=== PATIENT | female | born 1945 | race American Indian/Alaskan Native ===

== ENCOUNTER 2019-09-22 04:28 | Emergency (ER) | payer MEDICARE ==
[2019-09-22 05:33] LABS: Basophils % (Auto) 0.7 % (0.0-1.8); Eosinophils # (Auto) 0.1 K/mm3 (0.0-0.4); Eosinophils % (Auto) 1.6 % (0.0-4.3); Hematocrit 34.8 % (30.3-42.9); Hemoglobin 11.2 gm/dl (10.1-14.3); Lymphocytes # (Auto) 0.7 K/mm3 (1.2-5.4); Lymphocytes % (Auto) 9.7 % (13.4-35.0); Mean Corpuscular HGB Conc 32 % (30-34); Mean Corpuscular Volume 89 fl (79-97); Monocytes # (Auto) 0.6 K/mm3 (0.0-0.8); Monocytes % (Auto) 8.3 % (0.0-7.3); Platelet Count 270 K/mm3 (140-440); Red Blood Count 3.92 M/mm3 (3.65-5.03)
--- NOTE | 2019-09-22 06:26 | Emergency Department Report ---
ED General Adult HPI - General Chief complaint: Weakness Stated complaint: GENERAL WEAKNESS Time Seen by Provider: 09/22/19 06:09 Source: patient, family, EMS (EMS records not available at time of chart dictation.), RN notes reviewed, old records reviewed Mode of arrival: Stretcher Limitations: Physical Limitation - History of Present Illness Initial comments: During history and physical examination, I am parts chaser and escorted by nurse SAMIR MUELLER The patient is a 74-year-old female. She is not known to myself previously. She typically follows with the [facility]. Her past medical history includes hypertension, obesity, elephantiasis. The patient has a chronic wound on her right lower extremity which her family reportedly is taking care of. The patient presents to the ER with a complaint of leg weakness and difficulty walking. The patient is typically ambulatory with a cane and/or walker. She reports that yesterday, at around 1:00 PM, she was not able to get herself up and had difficulty slightly herself up with her right lower extremity, or so she thinks. Her history is erratic, because during the history and physical, she then ingested her story/history and indicated that she felt like her left leg was weaker, possibly starting at 4:00 PM. The patient denies physical pain, with the exception of chronic right lower ext remity pain over her wound. There is no complaint of headache, neck pain, chest pain, abdominal pain. She has chronic shortness of breath. The patient denies bladder or bowel retention, and incontinence. She denies saddle anesthesia. Her extremity weakness is constant. -: hour(s) Location: left, right, lower extremity Consistency: constant Improves with: rest Worsens with: movement - Related Data Allergies Allergy/AdvReac Type Severity Reaction Status Date / Time No Known Allergies Allergy Verified 09/22/19 12:47 ED Review of Systems ROS: Stated complaint: GENERAL WEAKNESS Other details as noted in HPI Constitutional: malaise Eyes: denies: eye discharge ENT: denies: congestion Respiratory: shortness of breath Cardiovascular: edema Gastrointestinal: denies: abdominal pain Genitourinary: denies: dysuria Musculoskeletal: arthralgia, myalgia Skin: lesions Neurological: weakness. denies: headache, numbness Hematological/Lymphatic: denies: easy bleeding ED Past Medical Hx - Past Medical History Hx Hypertension: Yes Hx Renal Disease: Yes - Social History Smoking Status: Never Smoker Substance Use Type: None ED Physical Exam - General Limitations: Physical Limitation General appearance: alert, in no apparent distress - Head Head exam: Present: atraumatic, normocephalic - Eye Eye exam: Present: normal appearance, EOMI. Absent: nystagmus - ENT ENT exam: Present: normal exam, normal orophraynx, mucous membranes moist, normal external ear exam - Neck Neck exam: Present: normal inspection, full ROM. Absent: tenderness, meningismus - Respiratory Respiratory exam: Present: decreased breath sounds. Absent: respiratory distress, wheezes, rales, stridor - Cardiovascular Cardiovascular Exam: Present: normal rhythm, tachycardia, normal heart sounds. Absent: systolic murmur, diastolic murmur, rubs, gallop - GI/Abdominal GI/Abdominal exam: Present: soft. Absent: distended, tenderness, guarding, rebound, rigid, pulsatile mass - Rectal Rectal exam: Present: normal inspection, normal rectal tone, other (chaperoned by nurse SAMIR MUELLER). Absent: decreased rectal tone, heme (-) stool, heme (+) stool, black stool - Extremities Exam Extremities exam: Present: pedal edema, other (2+ pulses noted in the bilateral upper and lower extremities. The pelvis is stable. There is no long bony tenderness. The muscular compartments are soft. There is no redness, pus, streaking or erythema.). Absent: normal inspection (chronic-appearing wounds noted on right lower extremity. Elephantiasis is noted. Venous stasis is noted.), calf tenderness - Back Exam Back exam: Present: normal inspection. Absent: tenderness, CVA tenderness (R), CVA tenderness (L), paraspinal tenderness, vertebral tenderness - Neurological Exam Neurological exam: Present: alert, other (there is no facial droop. The tongue is midline. Extraocular movements are intact bilaterally. Sensation is intact to light touch in the bilateral V1, V2, V3 distribution bilaterally.visual acuity intact to finger counting, color perception, reading at a close distance 5/5 strength bilateral upper extremities. Sensation is intact to light touch and pinch in the bilateral upper and lower extremities. Plantar flexion, dorsiflexion intact in the bilateral lower extremities. When the bilateral hips are isolated, and the bilateral knees are held in flexion, 5/5 strength in the bilateral lower extremities.) - Psychiatric Psychiatric exam: Present: anxious - Skin Skin exam: Present: warm ED Course Vital Signs 09/22/19 09/22/19 09/22/19 04:45 05:29 05:30 Temperature 97.5 F L Pulse Rate 108 H 78 81 Respiratory 28 H 19 22 Rate Blood Pressure 156/74 Blood Pressure 156/65 [Left] O2 Sat by Pulse 91 91 89 Oximetry 09/22/19 09/22/19 09/22/19 05:45 05:48 06:00 Temperature Pulse Rate 66 74 Respiratory 25 H 18 17 Rate Blood Pressure 171/68 166/83 Blood Pressure [Left] O2 Sat by Pulse 96 97 96 Oximetry 09/22/19 09/22/19 09/22/19 06:15 08:44 13:23 Temperature Pulse Rate 82 80 Respiratory 16 16 Rate Blood Pressure 152/71 Blood Pressure 158/84 143/59 [Left] O2 Sat by Pulse 98 100 95 Oximetry - Reevaluation(s) Reevaluation #1: 09/22/19 07:40 Differential diagnosis, including but not limited to: Pneumonia, urinary tract infection, debility, spinal cord lesion, subacute stroke, congestive heart failure, cardiorenal syndrome Assessment and plan: 74-year-old female with chronic weakness and debility, presenting with worsens lower extremity subjective weakness and functional status. The patient is a poor historian, and has difficulty providing her exact last known well time. However, she presents more than 4.5 hours after symptom onset, it is not a TPA candidate. She is seen in consultation with stroke neurology, Dr. Castellanos, and we agreed to obtain emergent imaging to exclude large vessel occlusion, and lumbar spinal cord compression, based off of the history and physical. Patient indicates no contraindications to MRI, and has evidence of renal failure/renal insufficiency, manifest by decreased GFR, and elevated creatinine. Emergent MRI of the brain, MR angiogram head and neck ordered, and lumbar spine ordered. Lasix is ordered, given hypoxia, and chest x-ray findings as well as physical exam findings. Discussed with [facility] physician, Dr. Morrison, who is agreeable to this plan of care, she requests call back once these diagnostics have resulted. Reevaluation #2: 09/22/19 10:40 MRI brain, angiogram head tentatively interpreted as negative for acute findings by Dr. Madden. MR angiogram neck pending interpretation at this time. Patient initially refused a lumbar spine MRI. I went back and had an extensive d iscussion with the patient, and we talked about the need for emergency acquisition of MRI. The patient is agreeable to MRI of the lumbar spine at this time. Discussion had with [facility] physician, Prince enciso updated Reevaluation #3: 09/22/19 11:58 mr head, mra head neck negative mri l spine shows 3mm-10mm anterolisthesis of l3/l4 with encroachment onto the cauda equina repeat phone call sent to [facility] Reevaluation #4: 09/22/19 12:34 Dr Flores of [facility] to follow in consultation [facility] to reach out to internal medicine to discuss transfer 09/22/19 13:37 Discussed with [facility] critical care doctor, Dr. Dorothy Lawton, who agrees the patient does not require intensive care unit triage. MRI full report is reviewed and appreciated. Please note that findings of discitis will not specifically discussed with me verbally by the radiologist. The patient is not having any back pain or back tenderness. However, she will be covered empirically with vancomycin and ceftriaxone. 09/22/19 14:26 Reevaluation #5: 09/22/19 13:52 Dr Magdaleno to admit to IMS at [facility] Patient has potentially emergent condition at this time, demonstrated by history, physical exam and objective MRI findings, such as discitis, anterolisthesis, and encroachment on the cauda equina, which cannot be definitively managed at this hospital as we do not have neurosurgical and spine capability available for consultation, evaluation and intervention. Patient's is hemodynamically suitable for transfer at this time. 09/22/19 13:54 ED Medical Decision Making - Lab Data Result diagrams: 09/22/19 05:21 09/22/19 05:21 Vital Signs 09/22/19 09/22/19 09/22/19 04:45 05:29 05:30 Temperature 97.5 F L Pulse Rate 108 H 78 81 Respiratory 28 H 19 22 Rate Blood Pressure 156/74 Blood Pressure 156/65 [Left] O2 Sat by Pulse 91 91 89 Oximetry 09/22/19 09/22/19 09/22/19 05:45 05:48 06:00 Temperature Pulse Rate 66 74 Respiratory 25 H 18 17 Rate Blood Pressure 171/68 166/83 Blood Pressure [Left] O2 Sat by Pulse 96 97 96 Oximetry 09/22/19 06:15 Temperature Pulse Rate Respiratory Rate Blood Pressure 152/71 Blood Pressure [Left] O2 Sat by Pulse 98 Oximetry Lab Results 09/22/19 09/22/19 09/22/19 Range/Units 05:21 05:21 05:21 WBC 6.9 (4.5-11.0) K/mm3 RBC 3.92 (3.65-5.03) M/mm3 Hgb 11.2 (10.1-14.3) gm/dl Hct 34.8 (30.3-42.9) % MCV 89 (79-97) fl MCH 29 (28-32) pg MCHC 32 (30-34) % RDW 15.0 (13.2-15.2) % Plt Count 270 (140-440) K/mm3 Lymph % (Auto) 9.7 L (13.4-35.0) % [place] % (Auto) 8.3 H (0.0-7.3) % Eos % (Auto) 1.6 (0.0-4.3) % Baso % (Auto) 0.7 (0.0-1.8) % Lymph # 0.7 L (1.2-5.4) K/mm3 [place] # 0.6 (0.0-0.8) K/mm3 Eos # 0.1 (0.0-0.4) K/mm3 Baso # 0.0 (0.0-0.1) K/mm3 Seg Neutrophils % 79.7 H (40.0-70.0) % Seg Neutrophils # 5.5 (1.8-7.7) K/mm3 PT (12.2-14.9) Sec. INR (0.87-1.13) APTT (24.2-36.6) Sec. Sodium 144 (137-145) mmol/L Potassium 4.3 (3.6-5.0) mmol/L Chloride 103.9 (98-107) mmol/L Carbon Dioxide 25 (22-30) mmol/L Anion Gap 19 mmol/L BUN 20 H (7-17) mg/dL Creatinine 1.6 H (0.7-1.2) mg/dL Estimated GFR 32 ml/min BUN/Creatinine Ratio 13 % Glucose 105 H (65-100) mg/dL Calcium 10.0 (8.4-10.2) mg/dL Total Bilirubin (0.1-1.2) mg/dL Direct Bilirubin (0-0.2) mg/dL Indirect Bilirubin mg/dL AST (5-40) units/L ALT (7-56) units/L Alkaline Phosphatase (35-129) units/L Total Creatine Kinase 210 H (30-135) units/L Troponin T < 0.010 (0.00-0.029) ng/mL Total Protein (6.3-8.2) g/dL Albumin (3.9-5) g/dL Albumin/Globulin Ratio % Salicylates (2.8-20.0) mg/dL Acetaminophen (10.0-30.0) ug/mL 09/22/19 09/22/19 09/22/19 Range/Units 06:48 06:48 06:48 WBC (4.5-11.0) K/mm3 RBC (3.65-5.03) M/mm3 Hgb (10.1-14.3) gm/dl Hct (30.3-42.9) % MCV (79-97) fl MCH (28-32) pg MCHC (30-34) % RDW (13.2-15.2) % Plt Count (140-440) K/mm3 Lymph % (Auto) (13.4-35.0) % [place] % (Auto) (0.0-7.3) % Eos % (Auto) (0.0-4.3) % Baso % (Auto) (0.0-1.8) % Lymph # (1.2-5.4) K/mm3 [place] # (0.0-0.8) K/mm3 Eos # (0.0-0.4) K/mm3 Baso # (0.0-0.1) K/mm3 Seg Neutrophils % (40.0-70.0) % Seg Neutrophils # (1.8-7.7) K/mm3 PT 14.3 (12.2-14.9) Sec. INR 1.10 (0.87-1.13) APTT 32.2 (24.2-36.6) Sec. Sodium (137-145) mmol/L Potassium (3.6-5.0) mmol/L Chloride (98-107) mmol/L Carbon Dioxide (22-30) mmol/L Anion Gap mmol/L BUN (7-17) mg/dL Creatinine (0.7-1.2) mg/dL Estimated GFR ml/min BUN/Creatinine Ratio % Glucose (65-100) mg/dL Calcium (8.4-10.2) mg/dL Total Bilirubin 0.70 (0.1-1.2) mg/dL Direct Bilirubin 0.2 (0-0.2) mg/dL Indirect Bilirubin 0.5 mg/dL AST 21 (5-40) units/L ALT 12 (7-56) units/L Alkaline Phosphatase 75 (35-129) units/L Total Creatine Kinase (30-135) units/L Troponin T (0.00-0.029) ng/mL Total Protein 7.3 (6.3-8.2) g/dL Albumin 3.2 L (3.9-5) g/dL Albumin/Globulin Ratio 0.8 % Salicylates < 0.3 L (2.8-20.0) mg/dL Acetaminophen (10.0-30.0) ug/mL 09/22/19 Range/Units 06:48 WBC (4.5-11.0) K/mm3 RBC (3.65-5.03) M/mm3 Hgb (10.1-14.3) gm/dl Hct (30.3-42.9) % MCV (79-97) fl MCH (28-32) pg MCHC (30-34) % RDW (13.2-15.2) % Plt Count (140-440) K/mm3 Lymph % (Auto) (13.4-35.0) % [place] % (Auto) (0.0-7.3) % Eos % (Auto) (0.0-4.3) % Baso % (Auto) (0.0-1.8) % Lymph # (1.2-5.4) K/mm3 [place] # (0.0-0.8) K/mm3 Eos # (0.0-0.4) K/mm3 Baso # (0.0-0.1) K/mm3 Seg Neutrophils % (40.0-70.0) % Seg Neutrophils # (1.8-7.7) K/mm3 PT (12.2-14.9) Sec. INR (0.87-1.13) APTT (24.2-36.6) Sec. Sodium (137-145) mmol/L Potassium (3.6-5.0) mmol/L Chloride (98-107) mmol/L Carbon Dioxide (22-30) mmol/L Anion Gap mmol/L BUN (7-17) mg/dL Creatinine (0.7-1.2) mg/dL Estimated GFR ml/min BUN/Creatinine Ratio % Glucose (65-100) mg/dL Calcium (8.4-10.2) mg/dL Total Bilirubin (0.1-1.2) mg/dL Direct Bilirubin (0-0.2) mg/dL Indirect Bilirubin mg/dL AST (5-40) units/L ALT (7-56) units/L Alkaline Phosphatase (35-129) units/L Total Creatine Kinase (30-135) units/L Troponin T (0.00-0.029) ng/mL Total Protein (6.3-8.2) g/dL Albumin (3.9-5) g/dL Albumin/Globulin Ratio % Salicylates (2.8-20.0) mg/dL Acetaminophen < 5.0 L (10.0-30.0) ug/mL - EKG Data 09/22/19 07:40 There is no prior EKG available for comparison. The EKG today shows a sinus rhythm, 78 bpm, left axis deviation, left anterior fascicular block, PVC, motion artifact, no endorsement of chest pain, the EKG is abnormal, it is not co nsistent with ST elevation myocardial infarction. - Radiology Data Radiology results: report reviewed, image reviewed Print Report Referring Physician: BRUCE SILVEIRA Patient Name: DIPIKA JONAS Date of : 1945 Sex: Female Report Date: 2019-09-22 Report Status: Finalized Findings [facility] [address] [place] [address] Cat Scan Report Signed Patient: DIPIKA JONAS MR#: [id number] : 1945 Acct:[id number] Age/Sex: 74 / F ADM Date: 09/22/19 Loc: ED Attending Dr: Ordering Physician: BRUCE SILVEIRA MD Date of Service: 09/22/19 Procedure(s): CT head/brain wo con Accession Number(s): [id number] cc: BRUCE SILVEIRA MD Examination: CT of the head without contrast Clinical information: Stroke symptoms. Right leg weakness. Comparison: None Technical: Multiple axial CT images of the head were obtained without intravenous contrast. Sagittal and coronal reformats were obtained. All CTs at this facility utilize dose reduction techniques including automated exposure control, iterative reconstruction and weight based dosing when appropriate to reduce patient radiation dose to as low as reasonable achievable. Findings: There is no CT evidence of acute intracranial hemorrhage or large territorial infarct. Subtle confluent regions of hypodensity are seen within the periventricular white matter. The ventricular system is normal in size. No extra-axial fluid collections are visualized. Evaluation of bony structures demonstrates no evidence of acute bony abnormality. There is complete mucosal opacification of the left maxillary sinus. Impression: 1. No definitive CT evidence of acute intracranial process. 2. Changes associated with chronic small vessel ischemic disease. If there is persistent clinical concern for stroke then MRI of the brain is recommended. This study was designated as a stroke protocol CT and findings were personally called to Dr Silveira in the Emergency Department at 5:58 AM. Signer Name: Carmel Almendarez MD Signed: 09/22/2019 6:58 AM Workstation Name: [id number] Transcribed By: EB Dictated By: Carmel Almendarez MD Electronically Authenticated By: Carmel Almendarez MD Signed Date/Time: 09/22/19657 DD/ 2 TD/TT: Print Report Referring Physician: BRUCE SILVEIRA Patient Name: DIPIKA JONAS Date of : 1945 Sex: Female Report Date: 2019-09-22 Report Status: Finalized Findings [facility] [address] [place] [address] XRay Report Signed Patient: DIPIKA JONAS MR#: [id number] : 1945 Acct:[id number] Age/Sex: 74 / F ADM Date: 09/22/19 Loc: ED Attending Dr: Ordering Physician: BRUCE SILVEIRA MD Date of Service: 09/22/19 Procedure(s): XR chest 1V ap Accession Number(s): [id number] cc: BRUCE SILVEIRA MD Fluoro Time In Minutes: CHEST 1 VIEW, 09/22/2019 6:56 AM CLINICAL INFORMATION/INDICATION: Weakness COMPARISON: None FINDINGS: SUPPORT DEVICES: None. HEART: The cardiac silhouette is enlarged. LUNGS/PLEURA: Perihilar interstitial disease is noted bilaterally. ADDITIONAL FINDINGS: No additional acute findings. IMPRESSION: 1. Enlargement of the cardiac silhouette with perihilar interstitial disease suggestive of pulmonary edema. Signer Name: Carmel Almendarez MD Signed: 09/22/2019 7:25 AM Workstation Name: [email or web address] Transcribed By: EB Dictated By: Carmel Almendarez MD Electronically Authenticated By: Carmel Almendarez MD Signed Date/Time: 09/22/19724 DD/DT: 09/22 Print Report Referring Physician: BRUCE SILVEIRA Patient Name: DIPIKA JONAS Date of : 1945 Sex: Female Report Date: 2019-09-22 Report Status: [place] [address] Magnetic Resonance Report Signed Patient: DIPIKA JONAS MR#: [id number] : 1945 Acct:[id number] Age/Sex: 74 / F ADM Date: 09/22/19 Loc: ED Attending Dr: Ordering Physician: BRUCE SILVEIRA MD Date of Service: 09/22/19 Procedure(s): MR lumbar spine wo con Accession Number(s): [id number] cc: BRUCE SILVEIRA MD MR lumbar spine wo con INDICATION / CLINICAL INFORMATION: 74 years Female; b/l lower ex weakness vs cva. TECHNIQUE: Multisequence, multiplanar images of the lumbar spine were obtained. COMPARISON: None available. FINDINGS: ALIGNMENT: There is grade 1 anterolisthesis of L3 with respect to L4 which appears to be on a degenerative basis. Approximately 8 mm of anterolisthesis is present. There is also scoliosis of the lumbar spine and mild excessive lordosis. VERTEBRAE:Grossly normal marrow signal and vertebral body height for age. However, there is evidence of endplate edema, as well as intradiscal edema at T11-12. Mild edema seen anterior the disc space at this level, as well. Schmorl's node is seen along superior endplate of T12. Findings may be on a degenerative basis, but the possibility of early discitis cannot entirely be excluded. Please clinically correlate. Modic type II changes are seen at L5-S1. Scattered hemangiomata seen at multiple levels. These findings are of no clinical significance. VISUALIZED SPINAL CORD: No significant abnormality. INTERVERTEBRAL DISCS: Multilevel disc desiccation noted. Disc space narrowing seen at L3-4. [id number] ANALYSIS: T11-12: As above. Mild disc bulge and mild facet and moderate ligamentum flavum hypertrophy noted. Mild canal narrowing seen. L1-2: No significant abnormality. L2-3: Mild disc bulge. [id number] facet and ligamentum flavum hypertrophy. Mild canal narrowing seen. Mild to moderate foraminal narrowing on the right without significant sequela. L3-4: As above. There is moderate disc bulge and moderate facet/ligamentum flavum hypertrophy. Findings result in high-grade canal narrowing at this level. Descending nerve roots are most likely affected. Moderate foraminal narrowing is seen bilaterally with encroachment upon L3 nerves. No impingement seen. L4-5: Mild disc bulge and small posterocentral disc protrusion. Mild to moderate facet hypertrophy. Mild foraminal narrowing bilaterally without significant sequela. L5-S1: Mild facet hypertrophy. No significant sequela. PARASPINAL SOFT TISSUES: There is edema in and around the L4-5 facet joint on the left, presumably reactive from arthropathy. Mild findings seen on the right at this level as well. ADDITIONAL FINDINGS: None. IMPRESSION: 1. Degenerative changes of the lumbar spine as described above. Most marked findings appear to be at L3-4. 2. Edematous changes seen in the disc and along the endplates at T11-12, as described above. Follow-up as clinically warranted. Signer Name: Alphonse Wright MD, III Signed: 09/22/2019 1:18 PM Workstation Name: [id number] Transcribed By: HR Dictated By: Alphonse Wright MD Electronically Authenticated By: Alphonse Wright MD Signed Date/Time: 09/22/19 1318 DD/ 1302 TD/TT: Critical Care Time: Yes Critical care time in (mins) excluding proc time.: 60 Critical care attestation.: If time is entered above; I have spent that time in minutes in the direct care of this critically ill patient, excluding procedure time. ED Disposition Clinical Impression: Leg weakness, Debility, Cardiorenal syndrome with renal failure, Chronic wound of extremity Disposition: DC/TX-02 SHRT-TRM GEN HOSP IP Is pt being admited?: No Does the pt Need Aspirin: No Condition: Stable Referrals: PRIMARY CARE, [Referring] - 3-5 Days
--- NOTE | 2019-09-22 06:59 | Emergency Department Report ---
ED Neuro Deficit HPI - General Chief Complaint: Weakness Stated Complaint: GENERAL WEAKNESS Time Seen by Provider: 09/22/19 06:09 Source: EMS Mode of arrival: Stretcher Limitations: Physical Limitation - History of Present Illness Initial Comments: [facility] Date of Service: 09/22/2019 06:28:12 Impression: RO Acute Ischemic Stroke = Probable History of Lumbar Stenosis. Comments: The paient has bilateral lower extremity weakness r>>l leg. She is able to move the right leg more than the left leg. She does have some lower back pain. No loss of incontincence. The patient is weak in the lower extremities. She has a lumbar stenosis in the spine. #1. Per Dr. Akins - MRI MRA head/neck will call [facility] back when this is completed. #2. MRI lumbar spine also. Mechanism of Stroke: Possible Thromboembolic Metrics: Last Known Well: Unknown [facility] Notification Time: 09/22/2019 06:27:29 Arrival Time: 09/22/2019 06:28:12 Stamp Time: 09/22/2019 06:28:12 Time First Login Attempt: 09/22/2019 06:35:01 Video Start Time: 09/22/2019 06:35:01 Symptoms: leg weakness, last known well is unkown NIHSS Start Assessment Time: 09/22/2019 06:36:31 Patient is not a candidate for tPA. Patient was not deemed candidate for tPA thrombolytics because of Last Well Know n Above 4.5 Hours. Video End Time: 09/22/2019 06:54:10 CT head showed no acute hemorrhage or acute core infarct. Advanced imaging CTA head and neck obtained. Radiologist was called back for review of advanced imaging on 09/22/2019 06:51:59 ER Physician notified of the decision on thrombolytics management on 09/22/2019 06:51:58 Our recommendations are outlined below. Recommendations: Activate Stroke Protocol Admission/Order Set Stroke/Telemetry Floor Neuro Checks Bedside Swallow Eval DVT Prophylaxis IV Fluids, Normal Saline Head of Bed Below 30 Degrees Euglycemia and Avoid Hyperthermia (PRN Acetaminophen) Hold Antithrombotics for Now Recommended Scan: MRI Head with and Without Contrast Lipid Panel to Be Obtained, if Not Done in the Last Three Months Therapies: Physical Therapy, Occupational Therapy, Speech Therapy Assessment When Applicable Dysphaghia Screen: Swallow Evaluation, Bedside NPO Until Swallow Evaluation DVT prophylaxis: SCDs, Pneumatic Compression Disposition: Follow up with Teleneurology Follow up Sign Out: Discussed with Emergency Department Provider History of Present Illness: Patient is a 74 year old Female. Patient was brought by EMS for symptoms of leg weakness, last known well is unkown The patient walks with a cane and walker, and she had right leg weakness, and left leg weakness at 4:[address] head showed no acute hemorrhage or acute core infarct. Last seen normal was beyond 4.5 hours of presentation. There is no history of hemorrhagic complications or intracranial hemorrhage. There is no history of Recent Anticoagulants. There is no history of recent major surgery. There is no history of recent stroke. Examination: BP(177/91), Pulse(97), Blood Glucose(105) 1A: Level of Consciousness - Alert; keenly responsive + 0 1B: Ask Month and Age - Both Questions Right + 0 1C: Blink Eyes & Squeeze Hands - Performs Both Tasks + 0 2: Test Horizontal Extraocular Movements - Normal + 0 3: Test Visual Amin - No Visual Loss + 0 4: Test Facial Palsy (Use Grimace if Obtunded) - Normal symmetry + 0 5A: Test Left Arm Motor Drift - No Drift for 10 Seconds + 0 5B: Test Right Arm Motor Drift - No Effort Against Trosper + 3 6A: Test Left Leg Motor Drift - No Effort Against Trosper + 3 6B: Test Right Leg Motor Drift - No Drift for 5 Seconds + 0 7: Test Limb Ataxia (FNF/Heel-Mari) - No Ataxia + 0 8: Test Sensation - Normal; No sensory loss + 0 9: Test Language/Aphasia - Normal; No aphasia + 0 10: Test Dysarthria - Normal + 0 11: Test Extinction/Inattention - No abnormality + 0 NIHSS Score: 6 Patient was informed the Neurology Consult would happen via TeleHealth consult by way of interactive audio and video telecommunications and consented to receiving care in this manner. Due to the immediate potential for life-threatening deterioration due to underlying acute neurologic illness, I spent 35 minutes providing critical care. This time includes time for face to face visit via telemedicine, review of medical records, imaging studies and discussion of findings with providers, the patient and/or family. Dr Albert Castellanos [facility] Case [id number] - Related Data Allergies/Adverse Reactions: Allergies Allergy/AdvReac Type Severity Reaction Status Date / Time No Known Allergies Allergy Unverified 09/22/19 04:48 ED Review of Systems ROS: Stated complaint: GENERAL WEAKNESS Other details as noted in HPI ED Past Medical Hx - Past Medical History Hx Hypertension: Yes Hx Renal Disease: Yes - Social History Smoking Status: Never Smoker Substance Use Type: None ED Neuro Physical Exam - General Limitations: Physical Limitation ED Course Vital Signs 09/22/19 09/22/19 09/22/19 04:45 05:29 05:30 Temperature 97.5 F L Pulse Rate 108 H 78 81 Respiratory 28 H 19 22 Rate Blood Pressure 156/74 Blood Pressure 156/65 [Left] O2 Sat by Pulse 91 91 89 Oximetry 09/22/19 09/22/19 05:45 05:48 Temperature Pulse Rate 66 Respiratory 25 H 18 Rate Blood Pressure 171/68 Blood Pressure [Left] O2 Sat by Pulse 96 97 Oximetry - Lab Data Result diagrams: 09/22/19 05:21 09/22/19 05:21 Lab Results 09/22/19 09/22/19 09/22/19 Range/Units 05:21 05:21 05:21 WBC 6.9 (4.5-11.0) K/mm3 RBC 3.92 (3.65-5.03) M/mm3 Hgb 11.2 (10.1-14.3) gm/dl Hct 34.8 (30.3-42.9) % MCV 89 (79-97) fl MCH 29 (28-32) pg MCHC 32 (30-34) % RDW 15.0 (13.2-15.2) % Plt Count 270 (140-440) K/mm3 Lymph % (Auto) 9.7 L (13.4-35.0) % Surry % (Auto) 8.3 H (0.0-7.3) % Eos % (Auto) 1.6 (0.0-4.3) % Baso % (Auto) 0.7 (0.0-1.8) % Lymph # 0.7 L (1.2-5.4) K/mm3 Surry # 0.6 (0.0-0.8) K/mm3 Eos # 0.1 (0.0-0.4) K/mm3 Baso # 0.0 (0.0-0.1) K/mm3 Seg Neutrophils % 79.7 H (40.0-70.0) % Seg Neutrophils # 5.5 (1.8-7.7) K/mm3 Sodium 144 (137-145) mmol/L Potassium 4.3 (3.6-5.0) mmol/L Chloride 103.9 (98-107) mmol/L Carbon Dioxide 25 (22-30) mmol/L Anion Gap 19 mmol/L BUN 20 H (7-17) mg/dL Creatinine 1.6 H (0.7-1.2) mg/dL Estimated GFR 32 ml/min BUN/Creatinine Ratio 13 % Glucose 105 H (65-100) mg/dL Calcium 10.0 (8.4-10.2) mg/dL Total Creatine Kinase 210 H (30-135) units/L Troponin T < 0.010 (0.00-0.029) ng/mL Critical care attestation.: If time is entered above; I have spent that time in minutes in the direct care of this critically ill patient, excluding procedure time. ED Disposition Condition: Stable
[2019-09-22] MEDS ORDERED: SODIUM CHLORIDE 0.9% 250ML 250 ML IV ONE (07:03)
--- NOTE | 2019-09-22 07:03 | Cat Scan Report ---
Examination: CT of the head without contrast Clinical information: Stroke symptoms. Right leg weakness. Comparison: None Technical: Multiple axial CT images of the head were obtained without intravenous contrast. Sagittal and coronal reformats were obtained. All CTs at this facility utilize dose reduction techniques inc luding automated exposure control, iterative reconstruction and weight based dosing when appropriate to reduce patient radiation dose to as low as reasonable achievable. Findings: There is no CT evidence of acute intracranial hemorrhage or large territorial infarct. Subt le confluent regions of hypodensity are seen within the periventricular white matter. The ventricular system is normal in size. No extra-axial fluid collections are visualized. Evaluation of bony structures demonstrates no evidence of acute bony abnormality. There is complete m ucosal opacification of the left maxillary sinus. Impression: 1. No definitive CT evidence of acute intracranial process. 2. Changes associated with chronic small vessel ischemic disease. If there is persistent clinical con cern for stroke then MRI of the brain is recommended. This study was designated as a stroke protocol CT and findings were personally called to Dr Silveira in the Emergency Department at 5:58 AM. Signer Name: Carmel Almendarez MD Signed: 09/22/2019 6:58 AM Workstation Name: [id number]
[2019-09-22 07:19] LABS: INR 1.1 (0.87-1.13)
[2019-09-22 07:20] LABS: Partial Thromboplastin Time 32.2 Sec. (24.2-36.6)
[2019-09-22 07:21] LABS: Albumin 3.2 g/dL (3.9-5); Bilirubin,Direct 0.2 mg/dL (0-0.2)
--- NOTE | 2019-09-22 07:30 | XRay Report ---
CHEST 1 VIEW, 09/22/2019 6:56 AM CLINICAL INFORMATION/INDICATION: Weakness COMPARISON: None FINDINGS: SUPPORT DEVICES: None. HEART: The cardiac silhouette is enlarged. LUNGS/PLEURA: Perihilar interstitial disease is noted bilaterally. ADDITIONAL FINDINGS: No additional acute findings. IMPRESSION: 1. Enlargement of the cardiac silhouette with perihilar interstitial disease suggestive of pulmonary edema. Signer Name: Carmel Almendarez MD Signed: 09/22/2019 7:25 AM Workstation Name: [id number]
[2019-09-22] MEDS ORDERED: FUROSEMIDE 20 MG/2 ML INJ IV ONE (07:39)
--- NOTE | 2019-09-22 10:45 | Magnetic Resonance Report ---
MRI BRAIN WITHOUT CONTRAST INDICATION / CLINICAL INFORMATION: CVA, spinal lesion, leg weakness. TECHNIQUE: Multisequence, multiplanar images were obtained. COMPARISON: CT head dated 09/22/2019 FINDINGS: CEREBRAL and CEREBELLAR HEMISPHERES: No evidence of mass or mass effect. No midline shift. No acute hemorrhage. No diffusion restriction to suggest acute infarct. No extra-axial fluid collection. M ild nonspecific T2 signal abnormalities are noted throughout the white matter consistent with chronic microangiopathy. No chronic infarct. VENTRICLES: Normal in size and configuration for age. VISUALIZED ORBITS: No significant abnormality. VISUALIZED PARANASAL SINUSES: There is moderate mucosal thickening and fluid which nearly occludes th e left maxillary sinus. Diffusion restriction overlies the left maxillary sinus which could represent acute sinusitis. ADDITIONAL FINDINGS: None. IMPRESSION: No evidence for acute infarct, hemorrhage or mass. Chronic white matter changes. Probable acute left maxillary sinusitis. MRA HEAD WITHOUT CONTRAST HISTORY: CVA, spinal lesion, leg weakness COMPARISON: None. TECHNIQUE: Routine MRA of the head is performed. 3-D/MIP reformats postprocessed. CONTRAST: None. FINDINGS: Intracranial vertebral arteries: No significant abnormality. Basilar artery: No significant abnormality. Posterior cerebral arteries: No significant abnormality. Intracranial internal carotid arteries: No significant abnormality. Anterior cerebral arteries: No significant abnormality. Middle cerebral arteries: No significant abnormality. Additional findings: None. IMPRESSION: 1. No significant abnormality. Signer Name: Sorin Madden Jr, MD Signed: 09/22/2019 10:41 AM Workstation Name: [id number]
--- NOTE | 2019-09-22 10:54 | Magnetic Resonance Report ---
MRA NECK WITHOUT CONTRAST HISTORY: Stroke, leg weakness COMPARISON: None. TECHNIQUE: Routine MRA of the neck is performed. 3-D/MIP reformats postprocessed. Percentage stenosi s is determined by direct quantitative measurements of distal internal carotid artery diameter compar ed with normal reference segments or by criteria similar to NASCET where applicable. CONTRAST: None. FINDINGS: Aortic arch: No significant abnormality. Cervical vertebral arteries: No significant abnormality. Common carotid arteries: No significant abnormality. Cervical internal carotid arteries: No significant abnormality. Additional findings: None. IMPRESSION: 1. No significant abnormality. Signer Name: Sorin Madden Jr, MD Signed: 09/22/2019 10:49 AM Workstation Name: [id number]
[2019-09-22] MEDS ORDERED: MIDAZOLAM 5 MG/5 ML INJ MDV IV SCH (11:00)
--- NOTE | 2019-09-22 13:22 | Magnetic Resonance Report ---
MR lumbar spine wo con INDICATION / CLINICAL INFORMATION: 74 years Female; b/l lower ex weakness vs cva. TECHNIQUE: Multisequence, multiplanar images of the lumbar spine were obtained. COMPARISON: None available. FINDINGS: ALIGNMENT: There is grade 1 anterolisthesis of L3 with respect to L4 which appears to be on a degener ative basis. Approximately 8 mm of anterolisthesis is present. There is also scoliosis of the lumbar spine and mild excessive lordosis. VERTEBRAE:Grossly normal marrow signal and vertebral body height for age. However, there is evidence of endplate edema, as well as intradiscal edema at T11-12. Mild edema seen anterior the disc space at this level, as well. Schmorl's node is seen along superior endplate of T1 2. Findings may be on a degenerative basis, but the possibility of early discitis cannot entirely be excluded. Please clinically correlate. Modic type II changes are seen at L5-S1. Scattered hemangiomata seen at multiple levels. These findings are of no clinical significance. VISUALIZED SPINAL CORD: No significant abnormality. INTERVERTEBRAL DISCS: Multilevel disc desiccation noted. Disc space narrowing seen at L3-4. [id number] ANALYSIS: T11-12: As above. Mild disc bulge and mild facet and moderate ligamentum flavum hypertrophy noted. Mi ld canal narrowing seen. L1-2: No significant abnormality. L2-3: Mild disc bulge. Uxum-of-xubmhwjt facet and ligamentum flavum hypertrophy. Mild canal narrowing seen. Mild to moderate foraminal narrowing on the right without significant sequela. L3-4: As above. There is moderate disc bulge and moderate facet/ligamentum flavum hypertrophy. Findin gs result in high-grade canal narrowing at this level. Descending nerve roots are most likely affecte d. Moderate foraminal narrowing is seen bilaterally with encroachment upon L3 nerves. No impingement seen. L4-5: Mild disc bulge and small posterocentral disc protrusion. Mild to moderate facet hypertrophy. M ild foraminal narrowing bilaterally without significant sequela. L5-S1: Mild facet hypertrophy. No significant sequela. PARASPINAL SOFT TISSUES: There is edema in and around the L4-5 facet joint on the left, presumably re active from arthropathy. Mild findings seen on the right at this level as well. ADDITIONAL FINDINGS: None. IMPRESSION: 1. Degenerative changes of the lumbar spine as described above. Most marked findings appear to be at L3-4. 2. Edematous changes seen in the disc and along the endplates at T11-12, as described above. Follow-u p as clinically warranted. Signer Name: Alphonse Wright MD, III Signed: 09/22/2019 1:18 PM Workstation Name: [id number]
[2019-09-22] MEDS ORDERED: VANCOMYCIN 2,000 MG in SODIUM CHLORIDE 0.9% 500 ML 500 ML IV ONE (13:35)
[2019-09-22 13:45] LABS: Bilirubin,Urine NEG (Negative); Blood,Urine MOD (Negative); Color,Urine Yellow (Yellow); Protein,Urine <15 mg/dL mg/dL (Negative); Urobilinogen,Urine < 2.0 mg/dL (<2.0)
[2019-09-22 17:37] VITALS: BP 127/59
== END 2019-09-22 20:32 | disposition short-term general hospital (02) ==
LOC: ED 04:28
DX: R54 Age-related physical debility (principal); I13.0 Hypertensive heart and chronic kidney disease with heart failure and stage 1 through stage 4 chronic kidney disease, or unspecified chronic kidney disease; L97.909 Non-pressure chronic ulcer of unspecified part of unspecified lower leg with unspecified severity; I10 Essential (primary) hypertension; N28.9 Disorder of kidney and ureter, unspecified; R93.0 Abnormal findings on diagnostic imaging of skull and head, not elsewhere classified
CPT/HCPCS: 36415; 70450; 70544; 70547; 70551; 71045; 72148; 80048; 80076; 81001; 82140; 82550; 83880; 84484; 85025; 85610; 85652; 85730; 86140; 87040; 93005; 93010; 96365; 96366; 96367; 96375; 99291; J0696; J1940; J2250; J3370; J7040; 80320; G0480